=== PATIENT | male | born 1995 | race Caucasian/White ===

== ENCOUNTER 2024-07-14 09:37 | Emergency (ER) | payer OTHER ==
[2024-07-14] MEDS: Lactated Ringers 1,000 ML IV ONE ×2 (10:43→13:02)
[2024-07-14] MEDS: Ondansetron 4 MG/2 ML SDV IVPUSH ONE (10:43)
[2024-07-14] MEDS: Sodium Chloride 0.9% 10 ML Syringe FLUSH PRN (10:43)
[2024-07-14 10:45] LABS: BASOPHILS ABSOLUTE AUTO 0.02 K/uL (0.00-0.10); BASOPHILS PERCENT AUTO 0.2 % (0.1-1.3); EOSINOPHILS ABSOLUTE AUTO 0.05 K/uL (0.00-0.40); EOSINOPHILS PERCENT AUTO 0.4 % (0.0-5.4); HEMATOCRIT 51.8 % (38.4-49.7); HEMOGLOBIN 17.6 g/dL (12.9-16.9); IMMATURE GRAN ABSOLUTE AUTO 0.05 K/uL (0.00-0.23); IMMATURE GRAN PERCENT AUTO 0.4 % (0.0-0.7); LYMPHOCYTES ABSOLUTE AUTO 0.25 K/uL (0.8-3.3); MEAN CORPUSCULAR VOLUME 85.5 fL (81.4-99.0); MONOCYTES ABSOLUTE AUTO 0.43 K/uL (0.20-0.90); MONOCYTES PERCENT AUTO 3.5 % (3.3-12.6); NEUTROPHILS PERCENT AUTO 93.5 % (40.0-78.1); PLATELET COUNT,PLT 218 K/uL (130-375); RED BLOOD CELL COUNT 6.06 M/uL (4.14-5.76); WHITE BLOOD CELL COUNT,WBC 12.3 K/uL (3.2-11.0)
[2024-07-14 11:00] LABS: ANION GAP 10.7 mmol/L (5.0-14.0); CALCIUM 9.5 mg/dL (8.5-10.1); CREATININE 1.4 mg/dL (0.8-1.3); EST CRCL DRUG DOSING (CG) 79.66 mL/min; POTASSIUM,K 4.8 mmol/L (3.6-5.2)
[2024-07-14] MEDS: fentaNYL 100 MCG/2 ML SDV IVPUSH ONE (13:06)
== END 2024-07-14 14:10 | disposition home or self-care (01) ==
LOC: JP.ED 09:37
DX: K52.9 Noninfective gastroenteritis and colitis, unspecified (principal)
CPT/HCPCS: 36415; 80048; 83605; 85025; 96361; 96374; 96375; 99283; 99284; J2405; J3010; J7120